=== PATIENT | female | born 1990 | race Caucasian/White ===

== ENCOUNTER 2022-04-24 15:01 | Observation (INO) | payer BC ==
[~2022-04-24] VITALS: Ht 157.5 cm; Wt 79.1 kg
--- OUTSIDE RECORDS SUMMARY | 2022-04-24 15:04 | XMS ---
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 EJeromy VISIT COUNT (12 MO.) 1 HAYLEY Tony TOTAL 1 NOTE: Visits indicate total known visits. ED/UCC VISIT TRACKING (12 MO.) 04/24/2022 15:02 [facility] Curtis [place] TYPE: Emergency COMPLAINT: - ABDOMINAL PAIN INPATIENT VISIT TRACKING (12 MO.) No inpatient visits to display in this time frame [email or web address]
--- NOTE | 2022-04-24 19:54 | NUR ---
REPORT RECEIVED FROM SALENA BONDS IN ER.
[2022-04-24] MEDS ORDERED: VENLAFAXINE HCL75 M1 PO (20:15)
[2022-04-24] MEDS ORDERED: AMPHETAMINE SAL10 MG PO (20:15)
--- NOTE | 2022-04-24 20:20 | NUR ---
pt ARRIVES TO MS FLOOR. VOMITTING IN EMESIS BAG. PHONE CALL TO MD. TELEPHONE ORDER FOR ANTIEMETIC REPEATED BACK. IN pt ROOM, IVF BOLUS COMPLETE FROM ER. IV ANTIBIOTIC COMPLETE. IVF NOW INFUSING WNL ORDERED. pt NOW DENIES NAUSEA. CONSENT FOR SURGERY SIGNED BY pt. pt COMPLETING PRE SURGICAL WIPE DOWN AT THIS TIME. IN ROOM.
--- NOTE | 2022-04-24 23:33 | NUR ---
04/24/22 2333 Maira Skinner 2223 PT ARRIVED IN PACU NON RESPONSIVE TO NOXIOUS STIMULI WITH OPA IN PLACE. CHIN LIFT HELD BY RN. 2244 PT REACTIVE. OPA REMOVED. 225 PT MOVING ARMS AROUND IN BED. REMINDED PT SURGERY WAS OVER AND SHE COULD REST. 0 RESTING. NO C/O'S. 2315 TO ROOM 123. UP TO BSC WITH 2 PERSON ASSIST. UNABLE TO VOID. MS RN AT BEDSIDE AND PT'S . REPORT GIVEN. BED PLUGGED IN.
--- NOTE | 2022-04-24 23:43 | NUR ---
pt BACK FROM SURGERY. DROWSY, REQUESTING TO VOID. UNSTEADY ON FEET. AND THREE NURSING STAFF ASSIST TO BSC. pt REQUESTING "REAL TOILET". 1PA WITH TO AMBULATE TO RESTROOM. 100ML AND UNSMEASURED VOID IN TOILET. pt BACK IN BED. VSS. CPOX IN PLACE. SCDS ON. IV SITE FLUSHED WNL, IVF INFUSING ORDERED. ASSESSMENT COMPLETE. LAP SITES X [address], SMALL AMT. SS DRAINAGE FROM UMBILICUS. BOWEL TONES HYPOACTIVE. ABD SOFT. NON-TENDER. pt CLOSING EYES. BED ALARM ON.
--- NOTE | 2022-04-25 01:08 | NUR ---
pt SLEEPING, AWAKENS TO VOICE. POST OP VSS. 2PA TO BSC FOR SAFETY. pt ABLE TO VOID 475 MLS. NAUSEA NOTED, pt DRY HEAVING IN GARBAGE CAN. PRN NAUSEA MEDICATION ADMINISTERED. pt COMPLAINS OF 6/10 ABDOMINAL PAIN, PRN TORADOL ADMINISTERED. pt BACK IN BED, SCDS ON. CPOX IN PLACE. IVF INFUSING WNL. BED ALARM ON FOR SAFETY.
--- NOTE | 2022-04-25 02:02 | NUR ---
pt SLEEPING, AWAKENS TO VOICE FOR VS. VSS. pt DENIES PAIN AT REST, STATES "ONLY WHEN I COUGH". DRINK OF WATER PROVIDED. CALL LIGHT IN REACH. BED ALARM ON. MILL TENDER WARM UP RN MIXING IV ANTIBIOTIC.
--- NOTE | 2022-04-25 03:09 | NUR ---
PATIENT CALLED TO USE THE BATHROOM. PATIENT IS UP TO BEDSIDE COMMODE. PATIENT STATED WILL LET ME KNOW WHEN SHE IS DONE. CALL LIGHT IN REACH. CALL LIGHT ON. PATIENT IS IN BED SITTING WITH EYES CLOSED HOLDING THE EMESIS BAG. SCD,S AND CPOX BACK ON BY THIS BLANKER OPERATOR. FREDO MARTINO CAME. POST V/S TAKEN. PATIENT NOTICED DOES NOT TALK BUT ANSWERS SOME QUESTIONS BY NODDING HER HEAD.
--- NOTE | 2022-04-25 03:11 | NUR ---
POST OP VSS. pt BACK IN BED AFTER VOID IN BSC. pt CLOSING EYES, SLEEPING. IV ANTIBIOTIC INFUSING WNL. SCDS ON. CPOX IN PLACE.
--- NOTE | 2022-04-25 06:06 | NUR ---
pt AWAKENS TO VOICE. SCHEDULED PO MEDICATION FOR PAIN ADMINISTERED, pt RATES PAIN 4-5/10 WITH MOVEMENT IN ABDOMEN. ASSESSMENT COMPLETE. BOWEL TONES HYPOACTIVE, ABD SOFT, NON-TENDER WITH PALPATION. pt IS AWAKE, ALERT AT THIS TIME. PUDDING PROVIDED. ICE WATER REFILLED. SBA TO RESTROOM FOR VOID AND BACK TO BED. IVF INFUSING WNL. pt DENIES NAUSEA AT THIS TIME.
--- NOTE | 2022-04-25 07:31 | NUR ---
RECHarpal. BEDSIDE REPORT FROM NIGHT RN, ASSUMED ALL CARE OF PT.
[2022-04-25] MEDS ORDERED: DOXYCYCLINE HY100 MG PO (07:32)
[2022-04-25] MEDS ORDERED: IBUPROFEN200 MG PO (09:06)
[2022-04-25] MEDS ORDERED: TYLENOL EXTRA500 MG PO (09:07)
[2022-04-25] MEDS ORDERED: ARTIFICIAL TEAR15 ML OPTH (09:10)
[2022-04-25] MEDS ORDERED: ACETAMINOPHEN500 MG PO (10:10)
--- NOTE | 2022-04-25 11:00 | NUR ---
REVIEWED DC INSTX WITH PT. , VERBALIZES UNDERSTANDING, HAS F/U APPT. SET UP AND ALL PRINTED DC INFO. PHARMACY VISIT COMPLETED. PREPARE FOR DISCHARGE HOME.
--- NOTE | 2022-04-26 15:31 | PATH ---
[facility] [address] [place], [place] [address] Signed SPECIMEN(S): A APPENDIX SPECIMEN SOURCE: A. APPENDIX CLINICAL HISTORY: Acute appendicitis. FINAL PATHOLOGIC DIAGNOSIS: Appendix, appendectomy: - Acute appendicitis. - Acute periappendicitis is present. - No evidence of neoplasia. TWK:jane:C2NR MICROSCOPIC EXAMINATION: Histologic sections of all submitted blocks are examined by light microscopy. These findings, together with the gross examination, support the pathologic diagnosis. GROSS DESCRIPTION: The specimen, labeled "MS," is received in formalin and consists of Specimen: Appendix with mesoappendix. Dimensions: 8.9 x 1.2 cm. Serosa: Whetstone-perez, smooth with enlarged and congested subserosal vessels. Defect: Not grossly identified. Inking: Staple line is inked black. Mucosa: Whetstone-perez. Fecalith: Not grossly identified. Additional: None. Elementary [employer] Art Teacher sections are submitted in cassette (A1). JS (under the direct supervision of a pathologist) The Gross Description was prepared using a voice recognition system. The report was reviewed for accuracy; however, sound-alike word errors, addition and/or deletions may occur. If there is any question about this report, please contact Client Services. PERFORMING LABORATORY: The technical component was performed by [id number] [address] (CLIA# [id number]). The professional interpretation [facility] PATIENT NAME: SHERRY PINEDO PATHOLOGY DATE OF : [birth year] REPORT #: [id number] PHYSICIAN: VIRIDIANA PATHOLOGY PCP: TRISH SHANE REPORT IS CONFIDENTIAL AND NOT TO BE RELEASED WITHOUT AUTHORIZATION [facility] [address], [place] [address] [address] (CLIA#: [id number]). Diagnostician: Kolby Thomas MD Pathologist Electronically Signed 04/26/2022 Copies: ~ PATIENT NAME: SHERRY PINEDO PATHOLOGY DATE OF : [birth year] REPORT #: [id number] PHYSICIAN: VIRIDIANA PATHOLOGY PCP: TRISH SHANE REPORT IS CONFIDENTIAL AND NOT TO BE RELEASED WITHOUT AUTHORIZATION
--- NOTE | 2022-04-28 14:40 | HP ---
[facility] [address] [place], [place] [address] Signed ADMISSION DATE: 04/24/2022 REASON FOR ADMISSION: Acute appendicitis. HISTORY OF PRESENT ILLNESS: This 31-year-old white woman is several months since a gastric sleeve resection, having lost nearly 100 pounds. She presented to the emergency room today and was evaluated by Dr. Rodolfo Glover with complaints of lower abdominal pain most dominantly in the right lower quadrant. A CT scan of the abdomen was performed approximately 06:00 p.m., which showed the appendix measuring 11 mm in diameter with wall thickening and periappendiceal stranding likely consistent with acute appendicitis. There were no other concerning findings. She has had hysterectomy, but there was no adnexal mass. There is no evidence of hydronephrosis or hydroureteronephrosis. She is admitted for further evaluation and care. Evaluation included CBC, which shows a white count of 8.2, hematocrit of 41.3, and platelets are 309,000. Chem profile showed a potassium of 3.4, but was otherwise normal. Liver enzymes were normal. Lipase 69 (low). Her serology for COVID is still pending, but has been obtained. Urinalysis was essentially normal. PAST MEDICAL HISTORY: Does include prior cholecystectomy as well as hysterectomy with ovarian sparing. She has undergone gastric sleeve resection as well. ALLERGIES: She has allergies to Reglan and possibly promethazine. REVIEW OF SYSTEMS: She denies any shortness of breath or chest pain. She is having no dysphagia or dysuria. She has had no hematemesis or blood per rectum. PHYSICAL EXAMINATION: GENERAL: Pleasant white woman, who looks to be moderately uncomfortable. VITAL SIGNS: Her presentation vital signs showed a pulse rate of 96, respirations 28, now 14, previously blood pressure 117 systolic, pulse oximetry 100% on room air. NECK: Shows no thyromegaly or cervical adenopathy. Trachea is midline. Mucous membranes are quite dry. She has a IV hep-locked in her right hand without IV fluid running. CHEST: Shows normal respiratory excursion. She has no cough. Pulses regular. ABDOMEN: Still somewhat obese, but with stretch hernandez suggestive of contraction (weight Electronically Signed By: JOVANNA NEVAREZ MD 04/28/22 1440 PATIENT NAME: SHERRY PINEDO HISTORY AND PHYSICAL DATE OF : [birth year] REPORT #: [id number] PHYSICIAN: JOVANNA NEVAREZ MD PCP: TRISH SHANE REPORT IS CONFIDENTIAL AND NOT TO BE RELEASED WITHOUT AUTHORIZATION [facility] [address] [place], [place] [address] Signed loss). Rovsing sign is negative. She has tenderness to deep palpation in the right lower quadrant. EXTREMITIES: Show no clubbing, cyanosis, or edema. LABORATORY STUDIES: Show white count of 8.2, hematocrit 41.3, platelets 309,000. Chem profile abnormal for potassium of 3.4, a glucose of 99, AST 14. Liver enzymes otherwise normal. Lipase 69. As noted, serology for COVID is pending. I have reviewed the CT scan in detail as well as the written report, which describes a prior history of cholecystectomy. My review of the CT scan shows no sign of free air or intra-abdominal fluid particularly. The area concordant to the appendix appears to have edema and some inflammatory change of the surrounding mesentery as previously noted by radiology report. I do believe I see a fecalith as well. ASSESSMENT: It appears the patient has clinical and radiographic evidence of acute appendicitis. A brief review of her hospital record from the past shows she had previously episodes of recurrent pancreatitis and that may well have been the source of her cholecystectomy in the past. Her clinical symptoms and findings are highly consistent with acute appendicitis. We discussed the approach to management including nonoperative management, which I would not advocate. She strongly wishes to proceed with surgical intervention, which likely would include laparoscopic appendectomy. She understands the risk as does her , who accompanies her of this operation including, but not limited to bleeding, infection, need for other indicated procedures and of course, possible need for open procedure depending on operative findings. Understand that she wished to proceed. Jovanna Nevarez MD /MODL /[id number] cc: Rodolfo Glover MD [facility] Electronically Signed By: JOVANNA NEVAREZ MD 04/28/22 1440 PATIENT NAME: SHERRY PINEDO HISTORY AND PHYSICAL DATE OF : [birth year] REPORT #: [id number] PHYSICIAN: JOVANNA NEVAREZ MD PCP: TRISH SHANE REPORT IS CONFIDENTIAL AND NOT TO BE RELEASED WITHOUT AUTHORIZATION [facility] [address], [place] [address] Signed Copies: ~ Electronically Signed By: JOVANNA NEVAREZ MD 04/28/22 1440 PATIENT NAME: SHERRY PINEDO HISTORY AND PHYSICAL DATE OF : [birth year] REPORT #: [id number] PHYSICIAN: JOVANNA NEVAREZ MD PCP: TRISH SHANE REPORT IS CONFIDENTIAL AND NOT TO BE RELEASED WITHOUT AUTHORIZATION
--- NOTE | 2022-04-28 14:40 | OR ---
[facility] [address] [place], [place] [address] Signed DATE OF OPERATION: 04/24/2022 SURGEON: Jovanna Nevarez MD PREOPERATIVE DIAGNOSIS: 1. Acute appendicitis. 2. Obesity. History of gastric sleeve resection with 100-pound weight loss. POSTOPERATIVE DIAGNOSIS: Acute appendicitis. PROCEDURE: Laparoscopic appendectomy. ANESTHESIA: General endotracheal, Baylee Boyd, EXECUTIVE SALES MANAGER and local Marcaine 0.25%, 20 mL. INDICATION: This 31-year-old white woman has lost over 100 pounds following a gastric sleeve resection. She has had recurrent pancreatitis in the past, has undergone cholecystectomy with no further episodes of that. She presented to the emergency room at approximately 6:00 p.m. today, evaluated by Dr. Rodolfo Glovre with findings of right-sided abdominal pain and tenderness. A CT scan was performed confirming acute appendicitis. There was surgical absence of the gallbladder. No sign of other abnormality. The patient has been fluid resuscitated, given intravenous antibiotic cefoxitin and now to undergo appendectomy preferred by laparoscopic approach. The risks of bleeding, infection, need for open procedure, need for other indicated procedures and so forth was all reviewed in detail. She understands and wished to proceed. FINDINGS: Indeed, she did have markedly inflamed appendix that was dilated, but not perforated. It was located anteriorly and was straightforward in its exposure. The liver appeared normal. There was surgical absence of the gallbladder. The right adnexal was identified and the ovary, though somewhat small, was normal otherwise. The terminal ileum was normal. DESCRIPTION OF PROCEDURE: The patient was brought to the operating room, given a general endotracheal anesthetic. Preoperative antibiotic cefoxitin had been given. Sequential compression device stockings were used. After satisfactory general endotracheal anesthesia, the abdomen Electronically Signed By: JOVANNA NEVAREZ MD 04/28/22 1440 PATIENT NAME: SHERRY PINEDO OPERATIVE REPORT DATE OF : [birth year] REPORT #: [id number] PHYSICIAN: JOVANNA NEVAREZ MD PCP: TRISH SHANE REPORT IS CONFIDENTIAL AND NOT TO BE RELEASED WITHOUT AUTHORIZATION [facility] [address] [place], [place] [address] Signed was prepared with a chlorhexidine solution and draped sterilely. An infraumbilical incision was made and using an open Jalen cannula technique, attempts were made to enter the abdomen. Due to inability to enter the abdomen without causing significant bleeding with rectus muscle, then despite various attempts to pass through the infraumbilical area through an avascular plane, the wound was packed with gauze and plans made for entry above the umbilicus. Whether prior surgery had much to do with this is uncertain. A supraumbilical incision was made and it was rather straightforward to enter the abdomen from that site. A Jalen cannula was placed and pneumoperitoneum achieved to a level of 14 mmHg of carbon dioxide gas. Intra-abdominal inspection showed no sign of ascites or carcinomatosis, but certainly did show inflamed appendix in the right lower quadrant. There was surgical absence of the gallbladder and liver appeared normal. An epigastric 12 mm port was placed and cannula replaced to that site. The right lower quadrant 5 mm port was then placed. With two-hand manipulation, the appendix was easily elevated and a window created between the appendix and the cecum. Using an Endo-CHRISTIANNE stapling device, the appendix was transected flushed with the cecum. With similar technique, the mesoappendix was secured with an Endo-CHRISTIANNE stapler as well. The appendix was dilated enough that it could not easily be withdrawn to the trocar and therefore, an endobag was used and it was extracted in continuity with a Jalen cannula and passed for permanent pathology. Irrigation was undertaken in the right lower quadrant. There was no sign of bleeding or other problem. Evaluation of the adnexal structures on the right side showed a normal tube and a relatively small, but normal-appearing ovary otherwise. Excess irrigation fluid was suctioned free and the epigastric port was removed under direct visualization showing no sign of bleeding. The right lower quadrant port was similarly removed. The supraumbilical fascial incision was reapproximated with interrupted 0 Vicryl suture. The infraumbilical incision was similarly examined and although there was rectus muscle and so forth that had been and during the course of dissection, the fascial edges were reapproximated in bulk with the rectus muscle, showing no sign of bleeding or other problem. 20 mL of 0.25% Marcaine was injected into the trocar sites. Marta's layer was reapproximated with interrupted Vicryl and skin closed with interrupted 3-0 Vicryl. Steri-Strips were applied and she was ultimately extubated and transferred to the recovery room in good condition, having suffered no known complications. Sponge, needle, and instrument counts reported as correct x3. Jovanna Nevarez MD Electronically Signed By: JOVANNA NEVAREZ MD 04/28/22 1440 PATIENT NAME: SHERRY PINEDO OPERATIVE REPORT DATE OF : [birth year] REPORT #: [id number] PHYSICIAN: JOVANNA NEVAREZ MD PCP: TRISH SHANE REPORT IS CONFIDENTIAL AND NOT TO BE RELEASED WITHOUT AUTHORIZATION [facility] [address] [facility] [place], [place] [address] Signed NOLVIA/ZORAIDA /[id number] cc: LIVE Roach MD [facility] Copies: ~ Electronically Signed By: JOVANNA NEVAREZ MD 04/28/22 1440 PATIENT NAME: SHERRY PINEDO OPERATIVE REPORT DATE OF : [birth year] REPORT #: [id number] PHYSICIAN: JOVANNA NEVAREZ MD PCP: TRISH SHANE REPORT IS CONFIDENTIAL AND NOT TO BE RELEASED WITHOUT AUTHORIZATION
[2022-04-30] MEDS ORDERED: EFFEXOR XR75 MG PO (21:30)
[2022-04-30] MEDS ORDERED: HYDROCODON-ACE1 EA10 PO (23:35)
[2022-04-30] MEDS ORDERED: DOXYCYCLINE HY100 MG PO (23:35)
== END 2022-04-25 11:25 | disposition home or self-care (01) ==
LOC: ED 15:01 → MS 15:03
PROVIDERS: ADMIT Surgery; ATTEND Surgery
PROC: 0DTJ4ZZ Resection of Appendix, Percutaneous Endoscopic Approach (ICD-10-PCS; principal; 2022-04-24 20:03)
DX: K35.80 Unspecified acute appendicitis (principal); E66.9 Obesity, unspecified; Z98.84 Bariatric surgery status; Z88.8 Allergy status to other drugs, medicaments and biological substances; Z68.31 Body mass index [BMI] 31.0-31.9, adult; Z90.49 Acquired absence of other specified parts of digestive tract; Z20.822 Contact with and (suspected) exposure to COVID-19
CPT/HCPCS: 00840; 36415; 74177; 80053; 81001; 83690; 85025; 87502; 96372; 96375; 96376; 99285-25; A9270; C9803; G0378; J0694; J1100; J1170; J1644; J1790; J1885; J2270; J2405; J2704; J7030; J7121; Q9967; U0003

== ENCOUNTER 2024-10-30 05:54 | Emergency (ER) | payer BC ==
[~2024-10-30] VITALS: Ht 157.5 cm; Wt 90.3 kg
[~2024-10-30 05:54] MED LIST: ACETAMINOPHEN500 MG PO; AMPHETAMINE SAL10 MG PO; ARTIFICIAL TEAR15 ML OPTH; DOXYCYCLINE HY100 MG PO; EFFEXOR XR75 MG PO; HYDROCODON-ACE1 EA10 PO; IBUPROFEN200 MG PO; TYLENOL EXTRA500 MG PO; VENLAFAXINE HCL75 M1 PO
--- OUTSIDE RECORDS SUMMARY | 2024-10-30 06:02 | XMS ---
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 - 2 Visits in 30 Days CARE PROVIDERS There are no care providers on record at this time. Nidia has no Care Guidelines for this patient. [place] VISIT COUNT (12 MO.) 2 [facility] ([facility]uro Wade[facility] [address] [facility] TOTAL 3 NOTE: Visits indicate total known visits. ED/[facility] VISIT TRACKING (12 MO.) 10/30/2024 05:[address] [facility] [place] TYPE: Emergency COMPLAINT: - NECK TENTION/TILT 10/29/2024 14:50 [facility] Mauro ALEXANDER (Mauro Wade) TYPE: Emergency DIAGNOSES: - Epigastric pain - Viral intestinal infection, unspecified - Abdominal Pain 03/10/2024 08:01 [facility] Mauro ALEXANDER (Mauro Wade) TYPE: Emergency DIAGNOSES: - Lumbago with sciatica, right side - back pain - Tailbone Pain INPATIENT VISIT TRACKING (12 MO.) No inpatient visits to display in this time frame [email or web address]
[2024-10-30] MEDS ORDERED: BUPROPION XL300 MG PO (06:07)
[2024-10-30] MEDS ORDERED: IBUPROFEN 600 MG TAB PO ONE (06:30)
[2024-10-30] MEDS ORDERED: diphenhydrAMINE HCL 50 MG/ML VIAL IV ONE (06:30)
[2024-10-30] MEDS ORDERED: diphenhydrAMINE HCL 50 MG CAP PO ONE (07:15)
[2024-10-30 07:20] VITALS: BP 128/94
== END 2024-10-30 07:20 | disposition home or self-care (01) ==
LOC: ED 05:54
DX: G24.09 Other drug induced dystonia (principal); T43.4X5A Adverse effect of butyrophenone and thiothixene neuroleptics, initial encounter; Z88.8 Allergy status to other drugs, medicaments and biological substances; Z79.899 Other long term (current) drug therapy
CPT/HCPCS: 96374; 99283-25; A9270; J1200; Q0163

== ENCOUNTER 2025-03-02 07:33 | Emergency (ER) | payer BC ==
[~2025-03-02] VITALS: Ht 157.5 cm; Wt 84.8 kg
[~2025-03-02 07:33] MED LIST changes: +BUPROPION XL300 MG PO
[2025-03-02] MEDS ORDERED: SODIUM CHLORIDE 0.9% 1,000 ML IV ONE ×2 (07:45→09:30)
[2025-03-02] MEDS ORDERED: ondansetron HCL 4 MG/2 ML VIAL IV ONE (07:45)
[2025-03-02 08:00] LABS: BASOPHILS 0.9 % (0-2); EOSINOPHILS 2.1 % (0-6); HEMATOCRIT 44.7 % (35.0-50.0); HEMOGLOBIN 15.3 g/dL (12.0-18.0); LYMPHOCYTES 30.9 % (24-44); MCH 31.4 (27-36); MCHC 34.2 g/dl (30-36); MCV 91.9 fl (81-99); MONOCYTES 10.2 % (0-12); NEUTROPHILS 55.9 % (39-80); PLATELET COUNT 288 K/uL (140-440); RBC 4.86 M/ul (4.3-5.7); RDW 13.8 (10.5-15.0)
[2025-03-02] MEDS ORDERED: LORazepam 2 MG/ML VIAL IV ONE (08:15)
[2025-03-02 08:17] LABS: ALBUMIN 3.7 g/dL (3.4-5.0); ALBUMIN/GLOBULIN RATIO 1.19 (1.1-2.4); ANION GAP 12.6 (7-21); BILIRUBIN, TOTAL 0.7 mg/dL (0.2-1.0); BUN/CREATININE RATIO 11.53 (6.0-28.6); CALCIUM 8.5 mg/dL (8.5-10.1); CREATININE, SERUM 0.78 mg/dL (0.55-1.02); POTASSIUM 3.6 mmol/L (3.5-5.1); PROTEIN, TOTAL 6.8 g/dL (6.4-8.2)
[2025-03-02] MEDS ORDERED: HYDROmorphone HCL 1 MG/ML SYR IV PRN (08:30)
[2025-03-02] MEDS ORDERED: ONDANSETRON ODT8 MG PO (09:48)
[2025-03-02 10:30] VITALS: BP 125/83
== END 2025-03-02 10:30 | disposition home or self-care (01) ==
LOC: ED 07:33
PROVIDERS: Emergency Medicine
DX: K29.00 Acute gastritis without bleeding (principal); Z88.8 Allergy status to other drugs, medicaments and biological substances; Z79.2 Long term (current) use of antibiotics
CPT/HCPCS: 36415; 80053; 83690; 85025; 96361; 96374; 96375; 99284-25; J1171; J2060; J2405; J7030